=== PATIENT | female | born 1940 | race Caucasian/White ===

== ENCOUNTER 2021-04-29 08:52 | Emergency (ER) | payer MEDICARE, MEDICAID ==
[~2021-04-29] VITALS: Ht 2.5 cm; Wt 71.8 kg
[~2021-04-29 08:52] MED LIST: ACCUPRIL10 M1 PO; ULTRAM 50MG TAB50 MG PO; ZOFRAN8 MG PO
[2021-04-29 09:08] VITALS: TEMP 98.7
[2021-04-29 09:31] LABS: HEMATOCRIT 41.3 % (37.0-47.0); HEMOGLOBIN 13.7 g/dl (12.5-16.0); MEAN CELL VOLUME 96 fl (80.0-100.0); MEAN CORPUSCULAR HEMOGLOBIN 32 pg (27.0-31.0); MEAN CORPUSCULAR HGB CONC 33 g/dl (33.0-37.0); MEAN PLATELET VOLUME 11.2 fl (7.4-10.4); PLATELET COUNT 215 K/mm3 (130-400); RED BLOOD COUNT 4.31 M/mm3 (4.10-5.30); REDCELL DISTRIBUTION WIDTH-CV 12.6 % (11.5-14.5)
[2021-04-29 09:46] LABS: COLLECTION METHOD CLEAN CATCH
[2021-04-29 09:56] LABS: PH 6 (5-8); SQUAMOUS EPITHELIAL 0-2 /hpf; URINE APPEARANCE Clear; URINE BACTERIA None Seen /hpf; URINE BILIRUBIN Negative (NEGATIVE); URINE BLOOD Negative (NEGATIVE); URINE COLOR Yellow; URINE GLUCOSE Negative (NEGATIVE); URINE KETONE Trace (NEGATIVE); URINE LEUKOCYTE ESTERASE Negative (NEGATIVE); URINE NITRATE Negative (NEGATIVE); URINE PROTEIN(semi-quant) Negative (NEGATIVE); URINE RBC 0-2 /hpf; URINE UROBILINOGEN Negative (NEGATIVE)
[2021-04-29 10:21] LABS: EOSINOPHIL 1 % (0-4); LYMPHOCYTE 10 % (20.0-51.0); NEUTROPHILS 54 % (42.0-75.2)
[2021-04-29 10:29] LABS: PLATELET ESTIMATE NORMAL (NORMAL)
[2021-04-29 10:39] LABS: ALBUMIN 4.3 gm/dL (3.4-4.8); BILIRUBIN,TOTAL 0.7 mg/dL (0.2-1.2); C-REACTIVE PROTEIN 0.1 mg/dL (0.00-0.50); CALCIUM 10.3 mg/dL (8.4-10.2); CREATININE, serum 0.82 mg/dL (0.57-1.11); POTASSIUM 4.2 mmol/L (3.5-4.5); TOTAL PROTEIN 8.2 gm/dL (6.2-8.1)
[2021-04-29] MEDS ORDERED: MOBIC 7.5MG7.5 MG PO (14:09)
[2021-04-29 14:23] VITALS: BP 171/72; PULSE 67
== END 2021-04-29 14:27 | disposition home or self-care (01) ==
LOC: COL.ER 08:52
PROVIDERS: Nurse Practitioner Primary Care
DX: R10.9 Unspecified abdominal pain (principal); M25.551 Pain in right hip; I10 Essential (primary) hypertension; R11.0 Nausea; Z90.710 Acquired absence of both cervix and uterus; Z79.899 Other long term (current) drug therapy
CPT/HCPCS: J2270; J2405; J7030